=== PATIENT | male | born 1980 | race Hispanic/Latino ===

== ENCOUNTER 2017-03-13 11:36 | Emergency (ER) | payer SELFPAY ==
[2017-03-13] MEDS ORDERED: ACETAMINOPHEN EXTRA STRENGTH 500 MG TABLET ONE (11:41)
== END 2017-03-13 12:38 | disposition home or self-care (01) ==
LOC: EDH 11:36
DX: J09.X2 Influenza due to identified novel influenza A virus with other respiratory manifestations (principal); Z72.0 Tobacco use
CPT/HCPCS: 87804; 87880

== ENCOUNTER 2021-06-22 19:25 | Emergency (ER) | payer SELFPAY ==
[~2021-06-22] VITALS: Ht 170.2 cm; Wt 91.2 kg
[2021-06-22 20:28] VITALS: BP 104/43
== END 2021-06-22 23:52 | disposition left against medical advice (07) ==
LOC: EDH 19:25
DX: Z53.21 Procedure and treatment not carried out due to patient leaving prior to being seen by health care provider (principal)

== ENCOUNTER 2021-06-29 22:25 | Emergency (ER) | payer OTHER ==
[~2021-06-29] VITALS: Ht 167.6 cm; Wt 92.5 kg
[2021-06-29 22:49] VITALS: BP 123/50
[2021-06-29] MEDS ORDERED: OCTYL 2-CYANOACRYLATE 1 EACH TP ONE (22:58)
== END 2021-06-29 23:13 | disposition home or self-care (01) ==
LOC: EDH 22:25
DX: S61.210A Laceration without foreign body of right index finger without damage to nail, initial encounter (principal); X58.XXXA Exposure to other specified factors, initial encounter; Y93.89 Activity, other specified; Y92.89 Other specified places as the place of occurrence of the external cause; Y99.8 Other external cause status
CPT/HCPCS: 12001; 99282

== ENCOUNTER 2022-01-02 11:48 | Emergency (ER) | payer OTHER ==
[~2022-01-02] VITALS: Ht 170.2 cm; Wt 99.8 kg
[2022-01-02 11:51] VITALS: BP 117/76
[2022-01-02 12:20] LABS: BASOPHILS % (AUTO) 0.5 % (0.0-5.0); EOSINOPHILS % (AUTO) 0.6 % (0.0-8.0); HEMATOCRIT 42.2 % (42-54); LYMPHOCYTES % (AUTO) 18.1 % (21.0-51.0); MEAN CORPUSCULAR HEMOGLOBIN 28.1 pg (27.0-33.0); MEAN CORPUSCULAR HGB CONC 32.5 g/dL (32.0-36.0); MEAN CORPUSCULAR VOLUME 86.5 fL (79-99); MONOCYTES % (AUTO) 9.9 % (3.0-13.0); NEUTROPHILS % (AUTO) 70.6 % (40.0-77.0); PLATELET COUNT (AUTO) 310 K/uL (130-400); RED BLOOD CELL COUNT(AUTO) 4.88 MIL/uL (4.50-6.20); RED CELL DISTRIBUTION WIDTH 13.8 % (11.0-15.5); WHITE BLOOD COUNT (AUTO) 8.7 K/uL (4.8-10.8)
[2022-01-02] MEDS ORDERED: KETOROLAC 30MG VIAL (30MG/ML) IM ONE (12:30)
[2022-01-02] MEDS ORDERED: 0.9%NACL 1000ML 1,000 ML IV ONE (12:30)
[2022-01-02] MEDS ORDERED: FAMOTIDINE 20MG VIAL IV ONE (12:30)
[2022-01-02] MEDS ORDERED: ONDANSETRON 4MG INJ IVP ONE (12:30)
[2022-01-02] MEDS ORDERED: BENZONATATE 100 MG CAPSULE PO SCH (12:30)
[2022-01-02 12:36] LABS: ALBUMIN 3.7 g/dL (3.5-5.0); CREATININE 1.1 mg/dL (0.5-1.5); POTASSIUM 4.1 mmol/L (3.5-5.1); TOTAL PROTEIN, SERUM 8.1 g/dL (6.0-8.3)
[2022-01-02 13:50] LABS: APPEARANCE,URINE CLEAR (CLEAR); BILIRUBIN,URINE NEGATIVE (NEGATIVE); COLOR,URINE LIGHT-YELLOW (YELLOW); GLUCOSE, URINE (UA) NEGATIVE (NEGATIVE); KETONES,URINE NEGATIVE (NEGATIVE); LEUKOCYTE ESTERASE ,URINE NEGATIVE Leu/uL (NEGATIVE); NITRATE,URINE NEGATIVE (NEGATIVE); OCCULT BLOOD,URINE LARGE (NEGATIVE); PH,URINE 5.5 (5.0-8.0); PROTEIN,URINE NEGATIVE (NEGATIVE); UROBILINOGEN,URINE 0.2 mg/dL (0.2-1.0)
[2022-01-02 13:58] LABS: MUCUS,URINE RARE LPF (None Seen)
[2022-01-02] MEDS ORDERED: NAPR500T6 PO (15:13)
[2022-01-02] MEDS ORDERED: ONDA4TAB10 PO (15:13)
== END 2022-01-02 15:15 | disposition left against medical advice (07) ==
LOC: EDH 11:48
DX: J06.9 Acute upper respiratory infection, unspecified (principal); R10.9 Unspecified abdominal pain; R31.9 Hematuria, unspecified; Z20.822 Contact with and (suspected) exposure to COVID-19; Z79.1 Long term (current) use of non-steroidal anti-inflammatories (NSAID)
CPT/HCPCS: 36415; 71045; 80053; 81001; 85025; 87635; 87804; 87880; 93005; 96361; 96372; 96374; 96375; C9803; J1885; J2405; J3490; J7030

== ENCOUNTER 2022-07-06 12:25 | Emergency (ER) | payer OTHER ==
[~2022-07-06] VITALS: Ht 172.7 cm; Wt 97.5 kg
[~2022-07-06 12:25] MED LIST: NAPR500T6 PO; ONDA4TAB10 PO
[2022-07-06] MEDS ORDERED: ORPHENADRINE CITRATE 30 MG/ML ML IM ONE (14:30)
[2022-07-06] MEDS ORDERED: KETOROLAC 60 MG VIAL (30MG/ML) IM ONE (14:30)
[2022-07-06] MEDS ORDERED: OXYCODONE/ACETAMIN 5/325MG TAB PO ONE (14:30)
[2022-07-06] MEDS ORDERED: OXYC-38 PO (15:47)
[2022-07-06] MEDS ORDERED: CYCL10TA16 PO (15:47)
[2022-07-06] MEDS ORDERED: IBUP-2077 PO (15:47)
[2022-07-06] MEDS ORDERED: ONDANSETRON ODT 4MG TAB SL ONE (16:00)
[2022-07-06] MEDS ORDERED: MORPHINE 4 MG SYG IM ONE (16:00)
[2022-07-06 16:02] VITALS: BP 123/68
== END 2022-07-06 16:11 | disposition home or self-care (01) ==
LOC: EDH 12:25
DX: M54.42 Lumbago with sciatica, left side (principal); M54.41 Lumbago with sciatica, right side
CPT/HCPCS: 99285; 72131; 96372 ×2; J2270; J1885

== ENCOUNTER 2022-08-24 16:42 | Emergency (ER) | payer OTHER ==
[~2022-08-24] VITALS: Ht 175.3 cm; Wt 99.8 kg
[~2022-08-24 16:42] MED LIST changes: +CYCL10TA16 PO; +IBUP-2077 PO; +OXYC-38 PO
[2022-08-24] MEDS ORDERED: IBUP-2077 PO (18:50)
[2022-08-24] MEDS ORDERED: CYCL10TA16 PO (18:50)
[2022-08-24] MEDS ORDERED: CYCLOBENZAPRINE HCL 10 MG TABLET PO SCH (19:00)
[2022-08-24] MEDS ORDERED: KETOROLAC 30MG VIAL (30MG/ML) IM SCH (19:00)
[2022-08-24 19:56] VITALS: BP 141/62
== END 2022-08-24 19:59 | disposition home or self-care (01) ==
LOC: EDH 16:42
DX: S86.811A Strain of other muscle(s) and tendon(s) at lower leg level, right leg, initial encounter (principal); Z79.899 Other long term (current) drug therapy; X50.1XXA Overexertion from prolonged static or awkward postures, initial encounter; Y93.89 Activity, other specified; Y92.89 Other specified places as the place of occurrence of the external cause; Y99.8 Other external cause status
CPT/HCPCS: 99283; 29505; 73560; 96372; J1885

== ENCOUNTER 2024-07-29 22:14 | Emergency (ER) | payer OTHER ==
[~2024-07-29] VITALS: Ht 172.7 cm; Wt 93.0 kg
[~2024-07-29 22:14] MED LIST changes: +NAPR-1506 PO; -NAPR500T6 PO; +ONDA-243 PO; -ONDA4TAB10 PO
[2024-07-29 22:50] LABS: BASOPHILS # (AUTO) 0.02 K/uL (0.00-0.20); BASOPHILS % (AUTO) 0.4 % (0.0-5.0); EOSINOPHILS # (AUTO) 0.17 K/uL (0.00-0.70); EOSINOPHILS % (AUTO) 3.7 % (0.0-8.0); HEMATOCRIT 42.2 % (42-54); IMMATURE GRANULOCYTE ABSOLUTE 0.01 K/uL (0-1); LYMPHOCYTES # (AUTO) 1.7 K/uL (1.0-4.8); LYMPHOCYTES % (AUTO) 36.7 % (21.0-51.0); MEAN CORPUSCULAR HEMOGLOBIN 29.1 pg (27.0-33.0); MEAN CORPUSCULAR HGB CONC 32.2 g/dL (32.0-36.0); MEAN CORPUSCULAR VOLUME 90.2 fL (79-99); MONOCYTES # (AUTO) 0.4 K/uL (0.1-1.0); MONOCYTES % (AUTO) 9.1 % (3.0-13.0); NEUTROPHILS # (AUTO) 2.3 K/uL (1.8-7.7); NEUTROPHILS % (AUTO) 49.9 % (40.0-77.0); PLATELET COUNT (AUTO) 275 K/uL (130-400); RED BLOOD CELL COUNT(AUTO) 4.68 MIL/uL (4.50-6.20); RED CELL DISTRIBUTION WIDTH 13.9 % (11.0-15.5); WHITE BLOOD COUNT (AUTO) 4.6 K/uL (4.8-10.8)
--- NOTE | 2024-07-29 22:56 | ERN ---
ED Note History of Present Illness Stated Complaint: C/O CP WITH PAIN TO RT ARM AND SOB Chief Complaint: Chest Pain Time Seen by MD: 22:24 Dictation: 44-YEAR-OLD MALE WITH A PAST MEDICAL HISTORY OF CAD, STATUS POST STENT, TO THE ER COMPLAINING OF RIGHT CHEST PAIN, EXACERBATED WITH MOVEMENT OF RIGHT SHOULDER. STATED THE PAIN STARTED 24 HOURS AGO. Allergies: Coded Allergies: No Known Drug Allergies (Unverified Allergy, Unknown, 06/22/21) Home Meds Active Scripts Ibuprofen (Ibuprofen 800 mg Tab) 800 Mg Tab, 800 MG PO Q6H PRN for PAIN, #30 TAB Prov:MATT MABRY V [facility] 08/24/22 Cyclobenzaprine HCl (Flexeril) 10 Mg Tab, 10 MG PO TID, #9 TAB Prov:MATT MABRY [facility] 08/24/22 Oxycodone HCl/Acetaminophen (Percocet 5-325 mg Tablet) 1 Each Tablet, 1 EACH PO Q6H for pain, #16 TAB 0 Refills Prov:MARIA C RAYA MD 07/06/22 Ibuprofen (Ibuprofen 800 mg Tab) 800 Mg Tab, 800 MG PO Q8H for 10 Days, #30 TAB 0 Refills Prov:MARIA C RAYA MD 07/06/22 Cyclobenzaprine HCl (Flexeril) 10 Mg Tab, 10 MG PO TID for muscle stiffness, #14 TAB 0 Refills Prov:MARIA C RAYA MD 07/06/22 Naproxen (Naproxen) 500 Mg Tablet.dr, 500 MG PO BIDPC, #15 TAB Prov:CALISTA COPELANDP 01/02/22 Ondansetron (Ondansetron Odt) 4 Mg Tab.rapdis, 4 MG PO TID PRN for NAUSEA/VOMITING, #15 TAB Prov:CALISTA COPELANDP 01/02/22 Past Medical History Past Medical History: Other Additional Past Medical Hx: HX OF HEART ATTACK IN 10/2023 Surgical History: Other Surgical History Other: CARDIAC STENT Family History: Negative Social History: Negative Review of System Dictation NEGATIVE EXCEPT PER HPI CONSTITUTIONAL: NEGATIVE FOR FEVER,CHILLS, AND WEIGHT LOSS EYES: NEGATIVE FOR INJURY, PAIN,REDNESS, AND DISCHARGE ENT: NEGATIVE FOR INJURY,PAIN OR SWELLING CARDIOVASCULAR: CHEST PAIN RESPIRATORY: NEGATIVE FOR SHORTNESS OF BREATH, COUGH, AND WHEEZING, ABDOMEN/GI: NEGATIVE FOR ABDOMINAL PAIN, NAUSEA, VOMITING, DIARRHEA, AND CONSTIPATION BACK: NEGATIVE FOR INJURY AND PAIN : NEGATIVE FOR INJURY, BLEEDING AND DISCHARGE MS/EXTREMITY: RIGHT SHOULDER PAIN SKIN: NEGATIVE FOR RASH, AND DISCOLORATION NEURO: NEGATIVE FOR HEADACHE, WEAKNESS, NUMBNESS, TINGLING, AND SEIZURE PSYCH: NEGATIVE FOR SUICIDE IDEATION, HOMICIDAL IDEATION, AND HALLUCINATIONS Initial Vital Sign VS Vital Signs Date Time Temp Pulse Resp B/P (MAP) Pulse Ox O2 Delivery O2 Flow Rate FiO2 07/29/24 22:19 98.8 63 24 119/75 98 Room Air Physical Exam Dictation GENERAL: AWAKE, ALERT, NAD HEAD/FACE: NORMOCEPHALIC, ATRAUMATIC EYES: PERRL, EOMI, VISION AT BASELINE ENT: ORAL CAVITY CLEAR, TMS CLEAR, NO SIGNS OF INFECTION NECK: TRACHEA MIDLINE, SUPPLE, NO NUCHAL RIGIDITY CARDIOVASCULAR: RRR, NORMAL S1/S2, NO MRGS, NO JVD RESPIRATORY: CTAB, NO RESPIRATORY DISTRESS, NO RALES OR WHEEZES ABDOMEN: SOFT , NO TENDER SKIN: WARM, DRY, NORMAL TURGOR, NO RASH MS/EXTREMITY: DECREASED RANGE OF MOTION OF RIGHT SHOULDER DUE TO PAIN NEURO: COAX4, GCS 15, STRENGTH 5/5, CN 2-12 INTACT, NORMAL CEREBELLAR EXAM, NORMAL GAIT, PSYCH: NORMAL BEHAVIOR, MOOD, AND AFFECT NORMAL Results (Laboratory/Radiology) Laboratory/Radiology Laboratory Tests Test 07/29/24 22:39 White Blood Count 4.6 K/uL (4.8-10.8) L Red Blood Count 4.68 MIL/uL (4.50-6.20) Hemoglobin 13.6 g/dL (14.0-18.0) L Hematocrit 42.2 % (42-54) Mean Corpuscular Volume 90.2 fL (79-99) Mean Corpuscular Hemoglobin 29.1 pg (27.0-33.0) Mean Corpuscular Hemoglobin Concent 32.2 g/dL (32.0-36.0) Red Cell Distribution Width 13.9 % (11.0-15.5) Platelet Count 275 K/uL (130-400) Mean Platelet Volume 9.3 fL (7.5-10.5) Immature Granulocyte % (Auto) 0.2 % (0-1) Neutrophils (%) (Auto) 49.9 % (40.0-77.0) Lymphocytes (%) (Auto) 36.7 % (21.0-51.0) Monocytes (%) (Auto) 9.1 % (3.0-13.0) Eosinophils (%) (Auto) 3.7 % (0.0-8.0) Basophils (%) (Auto) 0.4 % (0.0-5.0) Neutrophils # (Auto) 2.3 K/uL (1.8-7.7) Lymphocytes # (Auto) 1.7 K/uL (1.0-4.8) Monocytes # (Auto) 0.4 K/uL (0.1-1.0) Eosinophils # (Auto) 0.17 K/uL (0.00-0.70) Basophils # (Auto) 0.02 K/uL (0.00-0.20) Absolute Immature Granulocyte (auto 0.01 K/uL (0-1) Nucleated Red Blood Cells 0.0 % (0.0-0.19) Sodium Level 141 mmol/L (136-145) Potassium Level 3.9 mmol/L (3.5-5.1) Chloride Level 106 mmol/L (101-111) Carbon Dioxide Level 30 mmol/L (21-32) Blood Urea Nitrogen 12 mg/dL (7-18) Creatinine 1.2 mg/dL (0.5-1.3) Glomerular Filtration Rate Calc 76 mL/min (>90) Random Glucose 79 mg/dL (70-105) Total Calcium 8.7 mg/dL (8.5-10.1) Total Creatine Kinase 183 U/L (21-232) # Troponin I High Sensitivity 10 ng/L (4-75) B-Type Natriuretic Peptide 43 pg/mL (0-100) EKG Comment: SINUS RHYTHM, INFERIOR INFARCT OLD DC 172, QT 393, ED Course ED Course Orders Procedure Category Date Status Time Vital Signs Per CPOE 07/29/24 Transmitted Routine 22:24 B-Type Natriuretic LAB 07/29/24 Complete Peptide 22:24 Chest 1vw RAD 07/29/24 Taken 22:24 12 Lead Ekg Tracing- EKG 07/29/24 Logged Technical 22:24 Oxygen By Nc/Pulse Ox CPOE 07/29/24 Transmitted 22:24 Maintain Iv CPOE 07/29/24 Transmitted 22:24 Iv Insertion CPOE 07/29/24 Transmitted 22:24 Cardiac Monitoring CPOE 07/29/24 Transmitted 22:24 Pulse Oximetry With CPOE 07/29/24 Transmitted Vs And Prn 22:24 Cbc With Differential LAB 07/29/24 Complete 22:24 Activity: Br W/Brp CPOE 07/29/24 Transmitted With Assist 22:24 Creatine Kinase, Total LAB 07/29/24 Complete 22:24 Troponin I High LAB 07/29/24 Complete Sensitivity 22:24 Urinalysis Profile LAB 07/29/24 Logged 22:24 Basic Metabolic Panel LAB 07/29/24 Complete 22:24 Cyclobenzaprine Hcl PHA 07/30/24 Logged (Cyclobenzaprine Hcl 00:00 Current Medications Medications (Trade) Dose Ordered Sig/Jess Route PRN Reason Start Time Stop Time Status Last Admin Dose Admin Cyclobenzaprine HCl (Cyclobenzaprine HCl) 10 mg ONCE ONCE PO 07/30/24 00:00 07/30/24 00:01 UNV Vital Signs Date Time Temp Pulse Resp B/P (MAP) Pulse Ox O2 Delivery O2 Flow Rate FiO2 07/29/24 22:19 98.8 63 24 119/75 98 Room Air Medical Decision Making MDM 44-YEAR-OLD MALE WITH A PAST MEDICAL HISTORY OF CAD, STATUS POST STENT, TO THE ER COMPLAINING OF RIGHT CHEST PAIN, EXACERBATED WITH MOVEMENT OF RIGHT SHOULDER. STATED THE PAIN STARTED 24 HOURS AGO. CHEST PAIN MUSCULAR CHEST PAIN RIGHT SHOULDER PAIN MUSCLE STRAIN CHEST PAIN WORKUP INCLUDING CARDIAC ENZYMES AND CHEST X-RAY, EKG EKG NEGATIVE FOR ACUTE ABNORMALITIES, IT IS A SINUS RHYTHM, TROPONIN NEGATIVE LIKELY PROBLEM IS DUE TO MUSCLE STRAIN AFFECT HIS RIGHT SHOULDER WITH THE RADIATION TO THE RIGHT CHEST. PATIENT WILL BE DISCHARGED ON MUSCLE RELAXANT AND PAIN MEDICATION P.R.N.. DX & DISP Disposition: Discharge Departure Impression: Primary Impression: Musculoskeletal back pain Additional Impressions: Strain of muscle and tendon of back wall of thorax, initial encounter, Shoulder pain, right Condition: Stable Referrals: NONE (PCP) CRISTIAN PAYNE MD July 29, 2024 22:56
[2024-07-29 22:59] LABS: CREATININE 1.2 mg/dL (0.5-1.3); POTASSIUM 3.9 mmol/L (3.5-5.1)
[2024-07-29 23:30] LABS: B-TYPE NATRIURETIC PEPTIDE 43 pg/mL (0-100)
[2024-07-29] MEDS ORDERED: ACET-66 PO (23:45)
[2024-07-29] MEDS ORDERED: IBUP-2070 PO (23:45)
[2024-07-29] MEDS ORDERED: CYCL10TA16 PO (23:45)
[2024-07-30] MEDS ORDERED: CYCLOBENZAPRINE HCL 10 MG TABLET PO ONE
[2024-07-30 00:10] VITALS: BP 122/76; PULSE 64; RESP 16; TEMP 98.2; O2SAT 98
--- NOTE | 2024-07-30 06:52 | EKG ---
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
--- NOTE | 2024-07-30 08:39 | HMCIMG ---
CHEST 1VW HISTORY: Chest pain COMPARISON: January 02, 2022 FINDINGS: A frontal projection of the chest was obtained. No acute pulmonary infiltrates is seen. The heart is borderline enlarged. All the lines and tubes are again seen in place. No evidence of aortic calcification is seen. IMPRESSION: 1. No acute pulmonary infiltrate is seen.
== END 2024-07-30 00:14 | disposition home or self-care (01) ==
LOC: EDH 22:14
DX: S29.012A Strain of muscle and tendon of back wall of thorax, initial encounter (principal); M54.9 Dorsalgia, unspecified; M25.511 Pain in right shoulder; Z95.5 Presence of coronary angioplasty implant and graft; X58.XXXA Exposure to other specified factors, initial encounter; Y93.89 Activity, other specified; Y92.89 Other specified places as the place of occurrence of the external cause; Y99.8 Other external cause status
CPT/HCPCS: 36415; 71045; 80048; 82550; 83880; 84484; 85025; 93005; 99285

== ENCOUNTER 2025-01-03 13:28 | Emergency (ER) | payer MEDICAID, OTHER ==
[~2025-01-03] VITALS: Ht 170.2 cm; Wt 94.3 kg
[~2025-01-03 13:28] MED LIST changes: +ACET-66 PO; +IBUP-1492 PO
[2025-01-03] MEDS: HYDROcodone/APAP 5/325 1 TAB TABLET PO ONE (14:58)
[2025-01-03 15:18] VITALS: BP 111/66; PULSE 48; RESP 20; TEMP 98.3; O2SAT 96
[2025-01-03] MEDS ORDERED: KETO10TA2 PO (15:33)
--- NOTE | 2025-01-03 15:34 | ERN ---
General Chief Complaint: Elbow Problem Stated Complaint: LEFT ELBOW PAIN Time Seen by MD: 13:30 Time Seen by Midlevel: 13:30 Source: patient History of Present Illness Initial Comments 44-year-old male presents to the ER with left elbow pain. 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 Denies any injury or fall. Allergies: Coded Allergies: No Known Drug Allergies (Unverified Allergy, Unknown, 06/22/21) Home Meds Active Scripts Cyclobenzaprine HCl (Flexeril) 10 Mg Tab, 1 TAB PO HS for muscle spasms for 5 Days, #5 TAB 0 Refills Prov:CRISTIAN PAYNE MD 07/29/24 Acetaminophen (Tylenol) 500 Mg Tab, 1 TAB PO Q6HPRN PRN for pain or fever for 15 Days, #30 TAB 0 Refills Prov:CRISTIAN PAYNE MD 07/29/24 Ibuprofen (Ibuprofen) 600 Mg Tablet, 1 TAB PO TID for pain for 10 Days, #30 TAB 0 Refills with food Prov:CRISTIAN PAYNE MD 07/29/24 Ibuprofen (Ibuprofen 800 mg Tab) 800 Mg Tab, 800 MG PO Q6H PRN for PAIN, #30 TAB Prov:MATT MABRY V [facility] 08/24/22 Cyclobenzaprine HCl (Flexeril) 10 Mg Tab, 10 MG PO TID, #9 TAB Prov:MATT MABRY V [facility] 08/24/22 Oxycodone HCl/Acetaminophen (Percocet 5-325 mg Tablet) 1 Each Tablet, 1 EACH PO Q6H for pain, #16 TAB 0 Refills Prov:MARIA C RAYA MD 07/06/22 Ibuprofen (Ibuprofen 800 mg Tab) 800 Mg Tab, 800 MG PO Q8H for 10 Days, #30 TAB 0 Refills Prov:MARIA C RAYA MD 07/06/22 Cyclobenzaprine HCl (Flexeril) 10 Mg Tab, 10 MG PO TID for muscle stiffness, #14 TAB 0 Refills Prov:MARIA C RAYA MD 07/06/22 Naproxen (Naproxen) 500 Mg Tablet.dr, 500 MG PO BIDPC, #15 TAB Prov:CALISTA COPELAND [facility] [facility] 01/02/22 Ondansetron (Ondansetron Odt) 4 Mg Tab.rapdis, 4 MG PO TID PRN for NAUSEA/VOMITING, #15 TAB Prov:CALISTA COPELAND [facility] [address] [facility] 01/02/22 Past Medical History Past Medical History: High Cholesterol, Heart Disease, Hypertension, [place] Medical History Other: HX OF HEART ATTACK IN 10/2023 Past Surgical History: Other Surgical History Other: CARDIAC STENT Family History Family History: Negative Social History Social History: Negative ROS Dictation CONSTITUTIONAL: Negative except for HPI HEAD/FACE: Negative except for HPI EENT: Negative except for HPI RESPIRATORY: Negative except for HPI GASTROINTESTINAL/ABDOMINAL: Negative except for HPI GENITOURINARY: Negative except for HPI MUSCULOSKELETAL: Negative except for HPI INTEGUMENTARY: Negative except for HPI NEUROLOGICAL/PSYCH: Negative except for HPI HEMATOLOGIC/LYMPHATIC: Negative except for HPI All Systems Negative, Except as noted above. 13 point review of systems assessed and all negative except for above. Physical Exam Physical Exam Dictation Vital Signs reviewed General Appearance: Alert, oriented x 3, no acute distress, well developed, nourished. Head and Face: non-traumatic. Eyes: PERRL, pink conjunctivas, eyelid no trauma, anterior chamber with arcus senilis. Ears: Pinnas intact and no signs of trauma or erythema ear canals clear and no discharge TM no erythema Nose: No discharge, no bleeding. Oropharynx: Mouth normal, tongue pink, pharynx clear,no erythema, tonsils no exudates, no abscesses noted, mucous membrane moist Neck: Supple, non-tender, no thyromegaly, no masses, no JVD, no bruits Breast:Deferred Chest:No tenderness, no crepitus, no paradoxical movement, no retractions Lungs:Clear, well-ventilated, symmetric, no rales, no wheezing, no rhonchi, no stridor, good breath sounds bilaterally Heart: Regular rate, regular rhythm, no murmur, no gallops Vascular: no peripheral edema, Abdomen: Soft, positive bowel sounds, nondistended, no guarding, nontender, no rebound, no masses no hepatomegaly, no splenomegaly, no Stinson's sign, no hernias. Rectal: Deferred Genital: Deferred Neurological: Normal speech, motor function intact, sensory function intact Musculoskeletal: Neck nontender, full range of motion, back nontender, full range of motion, Extremities: nontender, full range of motion Skin: Color pink, dry, no turgor, no rash, no lacerations, no abrasions, no contusions. Lymphatic: Deferred MDM MDM: Differential diagnosis: Fracture, contusion, tendinitis There are no social concerns with this patient. Prescription drug management Prescriptions will include: Toradol Medical management and examination interpretation discussions were had by me with other qualified healthcare professionals as indicated for the patient's care. ED Course Orders Procedure Category Date Status Time Elbow Comp 3+Vws Lt RAD 01/03/25 Taken 13:37 Ketorolac PHA 01/03/25 Complete Tromethamine 30mg/Ml 14:00 Hydrocodone/Apap PHA 01/03/25 Complete 5/325 ([place] 5/325mg) 14:00 Current Medications Medications (Trade) Dose Ordered Sig/Jess Route PRN Reason Start Time Stop Time Status Last Admin Dose Admin Acetaminophen/ Hydrocodone Bitart (NORco 5/325MG) 1 tab ONCE ONCE PO 01/03/25 14:00 01/03/25 14:01 DC 01/03/25 14:58 Ketorolac Tromethamine (toRADol) 30 mg ONCE ONCE IM 01/03/25 14:00 01/03/25 14:01 DC 01/03/25 14:42 Vital Signs Date Time Temp Pulse Resp B/P (MAP) Pulse Ox O2 Delivery O2 Flow Rate FiO2 01/03/25 15:18 98.2 48 20 111/66 96 Room Air* 0 21 01/03/25 13:36 98.1 61 16 118/80 98 Room Air* 0 21 01/03/25 13:29 98.1 61 16 118/80 98 Room Air 0 DX & DISP Disposition: Discharge Departure Impression: Primary Impression: Left elbow tendinitis Condition: Stable Scripts Ketorolac Tromethamine (Ketorolac Tromethamine) 10 Mg Tablet 1 TAB PO TID for pain for 5 Days, #15 TAB 0 Refills Prov: ANNA BARRIENTOS PAC 01/03/25 Additional Instructions: X-ray does not show any evidence of an acute fracture or dislocation. Your pain may be related to overuse which may be causing tendinitis. You were given a sling in the emergency department for comfort. I have also given you a prescription for Toradol which should help improve your pain over the next couple of days. Follow up with your primary care doctor for further evaluation. I have also given you a referral to senior label specialist of the pain persists. Referrals: MICHAEL MABRY M.D. (PCP) BREANA MYERS MD I have reviewed the case, and I agree with, Diagnosis and Plan I performed the substantive portion of the visit. I have reviewed and personally made and approve the management plan that is documented in the note by myself or the ZENIA. I acknowledge for responsibility for the patient's management plan. ANNA BARRIENTOS PAC Jan 03, 2025 15:34
--- NOTE | 2025-01-03 15:40 | NUR ---
SLING APPLIED TO THE LEFT ELBOW. PT TOLERATED PROCEDURE WELL.
--- NOTE | 2025-01-03 15:56 | HMCIMG ---
EXAM: CR left elbow, 4 View. CLINICAL HISTORY: r/o fx COMPARISON: None provided. FINDINGS: BONES: No acute fracture or aggressive appearing osseous lesion. Heterotopic ossification reflects a prior injury of the medial elbow ligaments. JOINTS: The joint spaces appear within normal limits. No dislocation. No radiographic evidence of a joint effusion. SOFT TISSUES: The soft tissues are unremarkable. IMPRESSION: No acute osseous abnormality. /[place]
== END 2025-01-03 15:49 | disposition home or self-care (01) ==
LOC: EDH 13:28
DX: M77.8 Other enthesopathies, not elsewhere classified (principal); M25.522 Pain in left elbow; I11.9 Hypertensive heart disease without heart failure; I25.2 Old myocardial infarction; E78.00 Pure hypercholesterolemia, unspecified; Z79.1 Long term (current) use of non-steroidal anti-inflammatories (NSAID); Z95.5 Presence of coronary angioplasty implant and graft
CPT/HCPCS: 99283; 73080; 96372; J1885

== ENCOUNTER 2025-01-27 22:05 | Emergency (ER) | payer MEDICAID, OTHER ==
[~2025-01-27] VITALS: Ht 170.2 cm; Wt 94.3 kg
[~2025-01-27 22:05] MED LIST changes: +KETO10TA2 PO
[2025-01-27 22:24] LABS: IMMATURE GRANULOCYTE ABSOLUTE 0.03 K/uL (0-1); NUCLEATED RED BLOOD CELLS 0.0 % (0.0-0.19); PLATELET COUNT (AUTO) 318 K/uL (130-400); RED BLOOD CELL COUNT(AUTO) 4.58 MIL/uL (4.50-6.20); RED CELL DISTRIBUTION WIDTH 14.9 % (11.0-15.5); WHITE BLOOD COUNT (AUTO) 6.9 K/uL (4.8-10.8)
--- NOTE | 2025-01-27 22:28 | ERN ---
ED Note History of Present Illness Stated Complaint: FALL FROM LADDER Chief Complaint: Multiple Trauma/Fall Time Seen by MD: 22:10 Dictation: This is a 45-year-old male who presented to the emergency room today accompanied by his for evaluation of fall from a ladder and injury to his left elbow area. Patient stated that today was his 1st day at work and somewhere around 12 and 1 p.m. patient is ladder slid under him and he fell down at least about 20 ft to the floor. He stated that instead of falling forward on his face and body he turned to the last and landed on his left elbow forearm and left side of the body. Impact was the most to his left upper extremity. He sustained no ecchymosis abrasions to anywhere else except left upper extremity. He did not want to miss work as today was his 1st a and pretended that nothing else was wrong and finished his work and went home his insisted on him coming for evaluation. His main complaint was severe left forearm swelling and pain. No loss of consciousness no injury to the head no blurred vision diplopia motor weakness or seizure activity. No depression in any skull area. History of any ecchymosis around the eyes Temperature 99 pulse 91 respirations 20 blood pressure 125/73 with a pulse oximetry of 97% on room air Trauma alert called-12.05 Time of patient arrival-12.05 ED physician involved and time of arrival and evaluation-12.05 Tier level- 2 [id number]-[id number] interventions done. Patient just transported by spouse by private vehicle Primary survey- Airway intact patient on room air with pulse oximetry of 98% Breathing-normal breath sounds coarse rhonchi bilaterally Circulation-skin warm, distal pulses 2+, capillary refill less than 2 seconds globally Disability-only left forearm and elbow very tender and swelling of the forearm medial extensor aspect Pupils equal round reacting to light GCS- E-5 V-4 M-6-15 Motor function-moves all extremities Sensory-no deficits Exposure Seanor CT scan of the head rules reviewed Seanor C-spine neurological intervention rules reviewed. No indication for imaging at this time Allergies: Coded Allergies: No Known Drug Allergies (Unverified Allergy, Unknown, 06/22/21) Home Meds Active Scripts Ketorolac Tromethamine (Ketorolac Tromethamine) 10 Mg Tablet, 1 TAB PO TID for pain for 5 Days, #15 TAB 0 Refills Prov:ANNA BARRIENTOS 01/03/25 Cyclobenzaprine HCl (Flexeril) 10 Mg Tab, 1 TAB PO HS for muscle spasms for 5 Days, #5 TAB 0 Refills Prov:CRISTIAN PAYNE MD 07/29/24 Acetaminophen (Tylenol) 500 Mg Tab, 1 TAB PO Q6HPRN PRN for pain or fever for 15 Days, #30 TAB 0 Refills Prov:CRISTIAN PAYNE MD 07/29/24 Ibuprofen (Ibuprofen) 600 Mg Tablet, 1 TAB PO TID for pain for 10 Days, #30 TAB 0 Refills with food Prov:CRISTIAN PAYNE MD 07/29/24 Ibuprofen (Ibuprofen 800 mg Tab) 800 Mg Tab, 800 MG PO Q6H PRN for PAIN, #30 TAB Prov:MATT MABRY [facility] 08/24/22 Cyclobenzaprine HCl (Flexeril) 10 Mg Tab, 10 MG PO TID, #9 TAB Prov:MATT MABRY [facility] 08/24/22 Oxycodone HCl/Acetaminophen (Percocet 5-325 mg Tablet) 1 Each Tablet, 1 EACH PO Q6H for pain, #16 TAB 0 Refills Prov:MARIA C RAYA MD 07/06/22 Ibuprofen (Ibuprofen 800 mg Tab) 800 Mg Tab, 800 MG PO Q8H for 10 Days, #30 TAB 0 Refills Prov:MARIA C RAYA MD 07/06/22 Cyclobenzaprine HCl (Flexeril) 10 Mg Tab, 10 MG PO TID for muscle stiffness, #14 TAB 0 Refills Prov:MARIA C RAYA MD 07/06/22 Naproxen (Naproxen) 500 Mg Tablet.dr, 500 MG PO BIDPC, #15 TAB Prov:CALISTA COPELAND 01/02/22 Ondansetron (Ondansetron Odt) 4 Mg Tab.rapdis, 4 MG PO TID PRN for NAUSEA/VOMITING, #15 TAB Prov:CALISTA COPELANDP 01/02/22 Past Medical History Past Medical History: High Cholesterol, Heart Disease, Hypertension, [place] Additional Past Medical Hx: HX OF HEART ATTACK IN 10/2023 Surgical History: Other Surgical History Other: CARDIAC STENT Family History: Negative Social History: Negative RN Note Reviewed/Agreed w/PFSH: Yes Review of System Dictation Constitutional: Negative for fever,chills, and weight loss Eyes: Negative for injury, pain,redness, and discharge ENT: Negative for injury,pain or swelling Cardiovascular: Negative for chest pain, palpitations, and edema Respiratory: Negative for shortness of breath, cough, and wheezing, Abdomen/GI: Negative for abdominal pain, nausea, vomiting, diarrhea, and constipation Back: Negative for injury and pain : Negative for injury, bleeding and discharge MS/Extremity: Positive for left arm, elbow and forearm injury and deformity Skin: Negative for rash, and discoloration Neuro: Negative for headache, weakness, numbness, tingling, and seizure Psych: Negative for suicide ideation, homicidal ideation, and hallucinations Initial Vital Sign VS Vital Signs Date Time Temp Pulse Resp B/P (MAP) Pulse Ox O2 Delivery O2 Flow Rate FiO2 01/27/25 22:06 99.0 91 20 125/73 97 Room Air 0 01/28/25 00:42 21 Physical Exam Dictation Secondary survey Vital signs reviewed General well-developed well-nourished, ambulatory Head-normocephalic normocephalic atraumatic head pupils are equal round reactive to light. No evidence of any depressed skull fracture Eyes pupils were equal round reactive to light conjunctiva clear extraocular movements intact no raccoon eyes ENT no ricardo sign nares patent, oropharynx clear no fluid in the ear canals. Neck no JVD, midline trachea, no cervical spine tenderness, Heart S1-S2 regular no murmurs rubs or gallops Lungs-clear to auscultation bilaterally Chest chest wall nontender no bruising or deformity noted no flail chest Abdomen-no Edeg [place]'s or [place]'s sign, soft nontender no rebound or guarding Pelvis stable to rock Skin-no ecchymosis anywhere except for some minor scratches in his anterior kowalski area left lower extremity. Back-no step-offs or deformities T2 L-spine nontender no perineal hematoma no blood at the meatus Extremities 2+ global pulses, moving all extremities well +5 x 5 muscle strength globally left upper extremity-swelling and tenderness in the left forearm in the medial aspect of the extensor/flexor surface. No ecchymosis open wounds or bleeding. Patient is able to move his hand and elbow. Neurological-cranial nerves 2-12 grossly intact no sensory deficits Rectal-deferred Results (Laboratory/Radiology) Laboratory/Radiology Laboratory Tests Test 01/27/25 22:13 White Blood Count 6.9 K/uL (4.8-10.8) Red Blood Count 4.58 MIL/uL (4.50-6.20) Hemoglobin 13.3 g/dL (14.0-18.0) L Hematocrit 41.4 % (42-54) L Mean Corpuscular Volume 90.4 fL (79-99) Mean Corpuscular Hemoglobin 29.0 pg (27.0-33.0) Mean Corpuscular Hemoglobin Concent 32.1 g/dL (32.0-36.0) Red Cell Distribution Width 14.9 % (11.0-15.5) Platelet Count 318 K/uL (130-400) Mean Platelet Volume 9.1 fL (7.5-10.5) Immature Granulocyte % (Auto) 0.4 % (0-1) Neutrophils (%) (Auto) 64.5 % (40.0-77.0) Lymphocytes (%) (Auto) 23.8 % (21.0-51.0) Monocytes (%) (Auto) 9.6 % (3.0-13.0) Eosinophils (%) (Auto) 1.3 % (0.0-8.0) Basophils (%) (Auto) 0.4 % (0.0-5.0) Neutrophils # (Auto) 4.4 K/uL (1.8-7.7) Lymphocytes # (Auto) 1.6 K/uL (1.0-4.8) Monocytes # (Auto) 0.7 K/uL (0.1-1.0) Eosinophils # (Auto) 0.09 K/uL (0.00-0.70) Basophils # (Auto) 0.03 K/uL (0.00-0.20) Absolute Immature Granulocyte (auto 0.03 K/uL (0-1) Nucleated Red Blood Cells 0.0 % (0.0-0.19) Sodium Level 135 mmol/L (136-145) L Potassium Level 3.5 mmol/L (3.5-5.1) Chloride Level 98 mmol/L (101-111) L Carbon Dioxide Level 29 mmol/L (21-32) Blood Urea Nitrogen 19 mg/dL (7-18) H Creatinine 1.3 mg/dL (0.5-1.3) Glomerular Filtration Rate Calc 69 mL/min (>90) Random Glucose 104 mg/dL (70-105) Total Calcium 8.7 mg/dL (8.5-10.1) Total Creatine Kinase 940 U/L (21-232) #*H Labs Reviewed?: Yes X-RAY Comment: REASON: Trauma -fall from 20 ft and left elbow swelling and deformity ORDERING PHYSICIAN: PIERCE CERON MD PROCEDURE: CXR1VW - CHEST 1VW EXAM: CR Chest, 1 view CLINICAL HISTORY: Trauma. COMPARISON: None provided. FINDINGS: The lungs show no infiltrates or other acute findings. No pleural effusion or pneumothorax. The cardiomediastinal silhouette is within normal limits. No acute osseous abnormality. IMPRESSION: No acute cardiopulmonary process is evident. /[place] DICTATED BY: NEVAEH RODARTE Jr., MD DATE: 01/27/252353 ELECTRONICALLY SIGNED BY: NEVAEH RODARTE Jr., MD DATE: 01/27/252353 REASON: Trauma -fall from 20 ft and left elbow swelling and deformity ORDERING PHYSICIAN: PIERCE CERON MD PROCEDURE: ELB3VW LT - ELBOW COMP 3+VWS LT EXAM: CR Left Elbow, 3 views CLINICAL HISTORY: Pain. Trauma. COMPARISON: 01/03/2025. FINDINGS: No acute fracture or aggressive appearing osseous lesion. Joint spaces are within normal limits. No radiographic evidence of joint effusion. There are a few accessory ossicles and mild enthesopathy adjacent to the medial epicondyle of the humerus. IMPRESSION: No acute bony abnormality is evident. There are a few accessory ossicles and mild enthesopathy adjacent to the medial epicondyle of the humerus. Compared to the prior study, there is no significant interval change. /[place] DICTATED BY: NEVAEH RODARTE Jr., MD DATE: 01/27/252350 ELECTRONICALLY SIGNED BY: NEVAEH RODARTE Jr., MD DATE: 01/27/252350 REASON: Trauma -fall from 20 ft and left elbow swelling and deformity ORDERING PHYSICIAN: PIERCE CERON MD PROCEDURE: FORARML - FOREARM 2VWS LT EXAM: CR Left Forearm, 2 views. CLINICAL HISTORY: Injury. COMPARISON: None provided. FINDINGS: No acute fracture or aggressive appearing osseous lesion. The joint spaces are within normal limits. The soft tissues are unremarkable. IMPRESSION: No acute bony abnormality is evident. /[place] DICTATED BY: NEVAEH RODARTE Jr., MD DATE: 01/27/252351 ELECTRONICALLY SIGNED BY: NEVAEH RODARTE Jr., MD DATE: 01/27/252351 ED Course ED Course Orders Procedure Category Date Status Time Cbc With Differential LAB 01/27/25 Complete 22:10 Basic Metabolic Panel LAB 01/27/25 Complete 22:10 Creatine Kinase, Total LAB 01/27/25 Complete 22:10 Elbow Comp 3+Vws Lt RAD 01/27/25 Resulted 22:10 Forearm 2vws Lt RAD 01/27/25 Resulted 22:10 Chest 1vw RAD 01/27/25 Resulted 22:10 Ketorolac PHA 01/27/25 Complete Tromethamine 30mg/Ml 22:30 Apply Ice Pack To: CPOE 01/27/25 Verified (Er) 22:24 Lactated Ringers PHA 01/27/25 Complete 1000ml (Lactated 23:30 Hydromorphone 1 Mg PHA 01/27/25 Complete Inj (Dilaudid 1mg Inj 23:30 Current Medications Medications (Trade) Dose Ordered Sig/Jess Route PRN Reason Start Time Stop Time Status Last Admin Dose Admin Hydromorphone HCl (DiLAUDid 1MG INJ) 1 mg ONCE ONCE IVP 01/27/25 23:30 01/27/25 23:31 DC 01/27/25 23:55 Ketorolac Tromethamine (toRADol) 30 mg ONCE ONCE IVP 01/27/25 22:30 01/27/25 22:40 DC 01/27/25 22:55 Lactated Ringer's 1,000 ml @ 125 mls/hr ONCE ONCE IV 01/27/25 23:30 01/28/25 00:50 DC 01/27/25 23:21 Vital Signs Date Time Temp Pulse Resp B/P (MAP) Pulse Ox O2 Delivery O2 Flow Rate FiO2 01/28/25 00:42 98.2 67 18 110/72 99 Room Air* 0 21 01/27/25 22:06 99.0 91 20 125/73 97 Room Air 0 Medical Decision Making MDM Differential diagnosis: Fractures of long bones of the left upper extremity, forearm, hematoma, tendon injury, contusion Rationale: Tests considered and ordered secondary to shared decision making include: Previous outside records reviewed: Old ER visits. Risk of complication and/or morbidity or mortality of patient management: None Medications-Per medication reconciliation Need for hospitalization: Patient does not meet criteria for hospitalization. Need for emergency major/minor surgery: No There are no social concerns with this patient. Prescription drug management Prescriptions will include symptomatic care Patient's prior external medical records from other ER visits were reviewed by me as indicated. Prior testing and results from previous visits were reviewed. Prior tests were taken into account with medical decision making and resource utilization, independent historian/historians were used to obtain complete medical history. I independently interpreted the test that were performed, results were reviewed by me and considered findings on radiology if ordered. Medical management and examination interpretation discussions were had by me with other qualified healthcare professionals as indicated for the patient's care. Problem List Problem List: (1) Fall on and from ladder causing accidental injury (2) Left elbow pain (3) Contusion of left forearm (4) Traumatic rhabdomyolysis DX & DISP Disposition: Discharge Departure Impression: Primary Impression: Fall on and from ladder causing accidental injury Additional Impressions: Contusion of left forearm, Traumatic rhabdomyolysis, Left elbow pain Condition: Stable Additional Instructions: Patient and the caregiver have been informed of all the diagnostic tests and the imaging conducted during the today's visit to the emergency room and has verb alized understanding of the results I have personally reviewed and interpreted all diagnostic exams performed here in the ER today as well as the vital signs documented by the nursing staff. The patient is now being discharged to home and should follow up with the primary care physician or the specialist as directed by the ER staff. Follow-up with primary care provider in 1 to 2 days. Take medications as directed here in the emergency room. Okay to continue home medications unless otherwise discussed during your visit in the emergency room today. Return to your nearest emergency room if symptoms worsen or if there is no improvement. Call 911 if you need immediate assistance. Take Tylenol or Motrin [id number] as needed and if no contraindications are present. Increase oral hydration. A wound culture or urine culture was ordered here in the emergency room department please follow-up with primary care provider and advise them to get repeat ports from our facility. If you had any Tomer wrap/splints that were applied here, please do not remove them until you see your primary care or specialty. Immobilize the left forearm and shoulder for a few days in his sling. Encourage plenty of fluids to avoid any further rhabdomyolysis. Pain medications PRN Referrals: MICHAEL MABRY M.D. (PCP) PIERCE CERON MD Jan 27, 2025 22:28
[2025-01-27 22:33] LABS: CREATININE 1.3 mg/dL (0.5-1.3); GLOMERULAR FILTR. RATE CALC 69.0 mL/min (>90); GLUCOSE,RANDOM 104.0 mg/dL (70-105); SODIUM SERUM 135.0 mmol/L (136-145); UREA NITROGEN, BLOOD 19.0 mg/dL (7-18)
[2025-01-27 22:49] LABS: CREATINE KINASE, TOTAL 940.0 U/L (21-232)
--- NOTE | 2025-01-27 22:52 | HMCIMG ---
EXAM: CR Left Elbow, 3 views CLINICAL HISTORY: Pain. Trauma. COMPARISON: 01/03/2025. FINDINGS: No acute fracture or aggressive appearing osseous lesion. Joint spaces are within normal limits. No radiographic evidence of joint effusion. There are a few accessory ossicles and mild enthesopathy adjacent to the medial epicondyle of the humerus. IMPRESSION: No acute bony abnormality is evident. There are a few accessory ossicles and mild enthesopathy adjacent to the medial epicondyle of the humerus. Compared to the prior study, there is no significant interval change. /[place]
--- NOTE | 2025-01-27 22:53 | HMCIMG ---
EXAM: CR Left Forearm, 2 views. CLINICAL HISTORY: Injury. COMPARISON: None provided. FINDINGS: No acute fracture or aggressive appearing osseous lesion. The joint spaces are within normal limits. The soft tissues are unremarkable. IMPRESSION: No acute bony abnormality is evident. /[place]
--- NOTE | 2025-01-27 22:55 | HMCIMG ---
EXAM: CR Chest, 1 view CLINICAL HISTORY: Trauma. COMPARISON: None provided. FINDINGS: The lungs show no infiltrates or other acute findings. No pleural effusion or pneumothorax. The cardiomediastinal silhouette is within normal limits. No acute osseous abnormality. IMPRESSION: No acute cardiopulmonary process is evident. /[place]
[2025-01-27] MEDS: LACTATED RINGERS 1000ML 1,000 ML IV ONE (23:21)
[2025-01-28 00:42] VITALS: BP 110/72; PULSE 67; RESP 18; TEMP 98.2; O2SAT 99
== END 2025-01-28 00:42 | disposition home or self-care (01) ==
LOC: EDH 22:05
DX: S50.12XA Contusion of left forearm, initial encounter (principal); T79.6XXA Traumatic ischemia of muscle, initial encounter; M25.522 Pain in left elbow; E78.00 Pure hypercholesterolemia, unspecified; I11.9 Hypertensive heart disease without heart failure; I25.2 Old myocardial infarction; Z79.1 Long term (current) use of non-steroidal anti-inflammatories (NSAID); Z95.5 Presence of coronary angioplasty implant and graft; W11.XXXA Fall on and from ladder, initial encounter; Y93.89 Activity, other specified; Y92.89 Other specified places as the place of occurrence of the external cause; Y99.9 Unspecified external cause status
CPT/HCPCS: 99284; 96374; 71045; 96361; 96375; 82550; 80048; 85025; 36415; 73080; 73090; J1885; J1171